=== PATIENT | male | born 1985 | race Caucasian/White ===

== ENCOUNTER 2022-01-09 09:01 | Outpatient (CLI) | payer OTHER, SELFPAY ==
--- NOTE | 2022-01-09 09:15 | CRLHL7_ITS ---
For Patients: As a result of the Century Cures Act, medical imaging exams and procedure reports are released immediately into your electronic medical record. You may view this report before your referring provider. If you have questions, please contact your health care provider. Indication: Left shoulder pain. Procedure : Informed consent was obtained. The site was marked. Time-out was performed. The skin of the left shoulder was cleansed with ChloraPrep. A sterile drape was placed. 8 cc of 1 percent lidocaine was administered for superficial anesthesia. Subsequently a 22 gauge spinal needle was introduced into the left shoulder joint under intermittent fluoroscopic guidance. Injection of 2 cc nonionic Omnipaque 240 contrast confirmed intra-articular location. Subsequently 11 cc of dilute gadolinium were injected. The needle was removed and hemostasis achieved with direct pressure. A dressing was placed. The patient tolerated the procedure well without immediate complication and was immediately sent to MRI for imaging. Total fluoroscopy time 35 seconds. Impression: Successful fluoroscopically guided left shoulder arthrogram for MRI. Dictated by Pipe Morales MD @ 01/09/2022 10:41:54 AM (Electronically Signed)
--- NOTE | 2022-01-09 10:15 | MR_ITS ---
[address] [address] Phone:?[phone] Fax:?[phone] Referring Physician Information: Alistair Bryant M.D. [address] [place] [address] Phone:?[phone] Fax:?[phone] Patient:Georgia Lizarraga D.O.B:?1985 Sex:?Male Phone:?[phone] [facility] MRN:?[id number] Exam Date:?01/09/2022 ? EXAM: MR ARTHROGRAM of the LEFT SHOULDER CLINICAL INFORMATION: Male, 36 years old, with left shoulder pain. INDICATION: Evaluate for labral tear. PRIOR SURGERY: None reported. PLAIN FILMS: None available. COMPARISONS: No prior MRIs available. TECHNICAL INFORMATION: Exam performed after the injection of gadolinium-based contrast into the glenohumeral joint of the left shoulder, reported separately. Using a 1.5T MR scanner and a localizing surface coil: coronal obliques: T1FS, PDFS sagittal obliques: PD, T1FS axials: PDFS, T1FS SEDATION: None CONTRAST: No intravenous contrast was administered. FINDINGS: Bones: Proximal humerus: No fracture or marrow edema/pathology. No humeral Hill-Sachs or reverse Hill-Sachs lesion/impaction or contusion. Glenoid: No fracture or marrow edema/pathology. No osseous Bankart lesion. Rotator cuff and muscles/tendons: Supraspinatus: No tendinopathy, tear or atrophy. Infraspinatus: No tendinopathy, tear or atrophy. Teres minor: No tendinopathy, tear or atrophy. Subscapularis: Mild tendinopathy of the superior distal subscapularis, without tendon tear or muscle atrophy. Deltoid: No strain or atrophy. Coracoacromial arch: Acromion morphology: The acromion has type II morphology. No discrete subacromial osseous spur or os acromiale. Acromiohumeral space: The acromiohumeral space is within normal limits. Coracohumeral space: The coracohumeral space is within normal limits. Acromioclavicular joint: Joint: Mild AC joint arthropathy, without significant inferior osteophytosis or evidence of supraspinatus impingement. Ligaments: Coracoclavicular ligaments are intact. Bursae: Subacromial-subdeltoid: No convincing subacromial bursal thickening/bursitis. Subcoracoid: No convincing subcoracoid bursal thickening/bursitis. Biceps tendon: The long head of the biceps tendon is present within the bicipital groove. Mild tendinopathy and fraying of the intra-articular biceps long head tendon, without split/tear. Glenohumeral joint: Contrast: Gadolinium-based contrast distends the glenohumeral joint, as expected, and fails to extend into the subacromial-subdeltoid bursa. Articular cartilage: Humeral head: No osteochondral abnormalities. Glenoid: No osteochondral abnormalities. Loose bodies: No discrete intra-articular body within the joint. Labrum:?Intrasubstance degeneration fraying/regular is present throughout the superior labrum, however and no contrast material visualized extending into the signal alteration seen on the PDFS sequences (coronal PDFS series 6 images 9- 15). There is poorly defined tearing of the anterior through inferior labrum over a length of 3.0 cm (coronal PDFS series 6 images 11-16 and axial T1FS series 3 images 16-19). No paralabral cyst. Inferior glenohumeral ligament/axillary pouch:?Intact. The axillary pouch is normal in thickness and signal. No evidence of adhesive capsulitis or capsular injury. IMPRESSION: 1. Poorly defined tearing of the anterior through inferior labrum over a length of 3.0 cm. Intrasubstance degeneration and fraying is present throughout the superior labrum, without additional labral tearing superiorly. 2. Mild subscapularis tendinopathy. No rotator cuff tendon tear. 3. Mild tendinopathy of the intra-articular biceps long head tendon, without split/tear. 4. Mild AC joint arthropathy. No subacromial-subdeltoid bursitis or narrowing of the glenohumeral space. 5. No full-thickness chondral defect or evidence of glenohumeral joint osteoarthritis. BC Electronically signed on 01/09/2022 3:09:00 PM by Michel Regan M.D.
== END 2022-01-09 09:02 | disposition home or self-care (01) ==
PROVIDERS: PCP Family Medicine; Visit Provider Orthopaedic Surgery
DX: M25.512 Pain in left shoulder (principal); S43.432A Superior glenoid labrum lesion of left shoulder, initial encounter; M75.52 Bursitis of left shoulder; M19.012 Primary osteoarthritis, left shoulder
CPT/HCPCS: 23350; 73222; 77002; A9575; Q9966

== ENCOUNTER 2022-11-19 21:12 | Emergency (ER) | payer OTHER, SELFPAY ==
[2022-11-19 21:16] VITALS: BP 155/101; PULSE 86; RESP 16; TEMP 36.2; O2SAT 96
--- NOTE | 2022-11-19 21:32 | CRLHL7_ITS ---
For Patients: As a result of the Century Cures Act, medical imaging exams and procedure reports are released immediately into your electronic medical record. You may view this report before your referring provider. If you have questions, please contact your health care provider. INDICATION: Sudden onset of testicular pain, left greater than right. One month status post vasectomy. COMPARISON: None available. FINDINGS: Ultrasound examination of the testes was performed with a high-resolution linear transducer. The testes are normal in appearance, with smooth margins and uniform internal echogenicity. There is normal and symmetric color and pulse doppler flow. The right testis measures 5.6 x 3.0 x 3.6 cm and the left measures 5.7 x 2.6 x 4.0. cm. The epididymal heads are normal in appearance. There are tiny bilateral hydroceles, nonspecific. No extratesticular masses are seen. IMPRESSION: Normal ultrasound examination of the testes with no sign of torsion. Tiny bilateral hydroceles, nonspecific. Dictated by Bipin Cunha MD @ 11/19/2022 10:58:58 PM (Electronically Signed)
[2022-11-19] MEDS: KETOROLAC 30 MG/ML inj IM (21:49)
--- NOTE | 2022-11-19 23:06 | CRLHL7_ITS ---
For Patients: As a result of the Century Cures Act, medical imaging exams and procedure reports are released immediately into your electronic medical record. You may view this report before your referring provider. If you have questions, please contact your health care provider. INDICATION: Left lower quadrant pain. COMPARISON: Ultrasound of the testes from today. TECHNIQUE: CT examination of the abdomen and pelvis was performed without contrast enhancement using 3 mm thick axial sections from the lung bases through the pubic symphysis. Oral contrast was not administered. Please note that all CT scans at this facility use dose modulation, iterative reconstruction, and/or weight-based dosing when appropriate to reduce radiation dose to as low as reasonably achievable. FINDINGS: In the abdomen, the unenhanced liver, spleen, pancreas, and adrenals are normal in appearance. A poorly seen low-density region in the cortex of the lower pole of the right kidney measuring 1.1 centimeters in diameter is probably a cortical cyst. The kidneys are otherwise normal in appearance. The gallbladder is normal in appearance. The abdominal aorta is normal in caliber with no sign of dilatation. There is no sign of retroperitoneal mass or adenopathy. The stomach, loops of small bowel, and colon in the abdomen are normal in appearance. In the pelvis, the appendix is normal in appearance with no sign of inflammatory process. The loops of small bowel, colon, and rectum in the pelvis are normal in appearance. The prostate is normal in appearance. The urinary bladder is normal in appearance. There is no sign of pelvic or inguinal mass or adenopathy. There is no sign of free air or free fluid in the abdomen or pelvis. The lung bases are clear. The osseous structures are normal in appearance for the patient`s age. IMPRESSION: Nothing seen to explain the patient`s left lower quadrant pain. No sign of diverticulosis or diverticulitis. No sign of left urinary system calculus or obstruction. CT of the abdomen shows a probable small cyst in the lower pole of the right kidney of no clinical concern. Normal CT of the pelvis without contrast. Please note that all CT scans at this facility use dose modulation, iterative reconstruction, and/or weight-based dosing when appropriate to reduce radiation dose to as low as reasonably achievable. Dictated by Bipin Cunha MD @ 11/19/2022 11:57:17 PM (Electronically Signed)
[2022-11-20 00:23] LABS: Appearance Urine Clear (Clear); Bilirubin Urine Negative (Negative); Blood Urine Negative (Negative); Color Urine Yellow (Yellow); Glucose Urine Negative (Negative); Ketones Urine Negative (Negative); Leukocyte Esterase Urine Negative (Negative); Nitrite Urine Negative (Negative); Protein Urine Negative (Negative); Specific Gravity Urine >= 1.030 (1.000-1.030); Urobilinogen Urine 0.2 (0.2-1.0)
--- NOTE | 2022-11-20 00:31 | ED.GENADULT ---
HPI - General Adult General Date Seen: 11/20/22 Chief complaint: Groin Pain Stated complaint: pain in lower right abdomen/groin Time Seen by Provider: 11/19/22 21:26 Source: patient Mode of arrival: ambulatory Limitations: no limitations History of Present Illness HPI narrative: Patient is a 37-year-old male who has been having some pain since yesterday, initially says it was kind of across the lower abdomen and left lower quadrant but today is more testicular. He had a vasectomy about a month ago which was uneventful. Had a little pain afterwards but that had gotten better. Has not had an appetite today, maybe some mild nausea. No vomiting or diarrhea, no black or bloody stools. He notes that it was difficult to urinate earlier but does not have dysuria or hematuria. No fevers or trauma. Related Data Home Medications Medication Instructions Recorded Confirmed cholecalciferol (vitamin D3) 25 25 mcg PO DAILY 12/17/21 01/21/22 mcg (1,000 unit) tablet dextroamphetamine-amphetamine ER 30 PO DAILY 12/17/21 01/21/22 30 mg 24hr capsule,extend release fluoxetine 40 mg capsule 40 mg PO DAILY 12/17/21 01/21/22 multivitamin with iron 1 tab PO QDAY 12/17/21 01/21/22 Allergies Allergy/AdvReac Type Severity Reaction Status Date / Time bupropion Allergy Unknown Suicide Verified 01/21/22 13:20 attempt venlafaxine Allergy Unknown Feel Verified 01/21/22 13:20 physically sick Review of Systems Status of ROS: Reports: 10 or more systems reviewed and unremarkable except as noted in History and below PFSH [facility] Social History Smoking Status: Never smoker Non-prescribed substance use: denies use Exam Narrative: Exam Narrative: Vital signs as noted above. In general, an alert, well-appearing patient. Head: Normocephalic, atraumatic. Eyes: Pupils are equal reactive. Extraocular movements are full. Conjunctivae are normal. ENT: Mucous membranes are moist. Throat is normal. Neck: Supple without lymphadenopathy. Heart: Regular rate and rhythm. No murmur or rub. Lungs: Clear bilaterally. No increased work of breathing, crackles or wheezes. Abdomen: Soft and nondistended. He has some mild suprapubic and left lower quadrant tenderness without rebound guarding or rigidity. : Scrotum is normal in appearance without significant erythema. Right testicle is nontender. On the left, he has some tenderness more over the spermatic cord, the testicle itself does not seem significantly tender. No significant edema. Extremities: Well perfused. No edema. No calf tenderness. Pulses intact. Neurologic: Patient is alert and oriented to person and place. Speech is fluent. Face is symmetric. Moves all extremities equally. Affect: Normal. Skin: Warm and dry. Well perfused. Const: Vital Signs, click to edit/add: Vital Signs - 24 hr 11/19/22 21:16 Temperature 97.2 F L Pulse Rate [Left P ulse Oximeter] 86 Respiratory Rate 16 Blood Pressure [Ri ght Upper Arm] 155/101 H Pulse Oximetry 96 Oxygen Delivery Me thod Room Air Documenting provider has reviewed patient's vital signs: yes Course Course Hospital Course: Initially, patient had an ultrasound read by Radiology as negative. He has good blood flow, no fluid collections or other abnormal findings. I had ordered a UA although this was not obtained until quite a ways into his ER course. He had some Toradol here. I elected to do a CT scan to look for another cause of pain that might radiate to the testicle such as a kidney stone or less likely diverticulitis, obstruction, or some other acute abdominal finding. CT is read by Radiology as negative. Etiology of his symptoms at this time is unclear. The urinalysis is unremarkable, 0-2 red cells and 0-2 white cells. For now, will cover for possible epididymitis, ibuprofen or Tylenol as needed for pain. Return for worsening, primary care follow-up if not improving over the next couple of days. Vital Signs Vital signs: Initial Vital Signs Temperature 97.2 F L 11/19/22 21:16 Temperature Source Temporal Artery Scan 11/19/22 21:16 Pulse Rate 86 11/19/22 21:16 Pulse Rhythm Regular 11/19/22 21:16 Respiratory Rate 16 11/19/22 21:16 Blood Pressure 155/101 H 11/19/22 21:16 Blood Pressure Mean 119 H 11/19/22 21:16 Blood Pressure Position Sitting 11/19/22 21:16 Pulse Oximetry 96 11/19/22 21:16 Oxygen Delivery Method Room Air 11/19/22 21:16 Vital Signs Temperature 97.2 F L 11/19/22 21:16 Pulse Rate 86 11/19/22 21:16 Respiratory Rate 16 11/19/22 21:16 Blood Pressure 155/101 H 11/19/22 21:16 Pulse Oximetry 96 11/19/22 21:16 Oxygen Delivery Method Room Air 11/19/22 21:16 Temperature 97.2 F L 11/19/22 21:16 Pulse Rate 86 11/19/22 21:16 Respiratory Rate 16 11/19/22 21:16 Blood Pressure 155/101 H 11/19/22 21:16 Pulse Oximetry 96 11/19/22 21:16 Oxygen Delivery Method Room Air 11/19/22 21:16 Discharge Plan Discharge Prescriptions: No Action dextroamphetamine-amphetamine 30 mg capsule,extended release 24hr 30 PO DAILY fluoxetine 40 mg capsule 40 mg PO DAILY cholecalciferol (vitamin D3) 25 mcg (1,000 unit) tablet 25 mcg PO DAILY multivitamin with iron Tablet 1 tab PO QDAY Follow Up/Referrals: Carmen Lopez DO [Primary Care Provider] -
[2022-11-20 00:32] LABS: Bacteria Urine Few; RBC Urine 0-2 (0-2); Squamous Epithelial Cell Urine Few (None-Few); WBC Urine 0-2 (0-5)
[2022-11-20 01:00] VITALS: BP 148/62; PULSE 70; RESP 16; O2SAT 96
== END 2022-11-20 01:02 | disposition home or self-care (01) ==
PROVIDERS: Emergency Provider Emergency Medicine; PCP Family Medicine
DX: R10.30 Lower abdominal pain, unspecified (principal)
CPT/HCPCS: 74176; 76870; 81001; 87086; 93976; 96372; 99284; J1885

== ENCOUNTER 2024-09-09 19:59 | Emergency (ER) | payer BC, SELFPAY ==
--- OUTSIDE RECORDS SUMMARY | 2024-09-09 20:04 | XMS_ITS | Continuity of Care Document ---
Author Organization [facility] Address [address] [place] [id number] Care Team Providers Care Replenishment Merchandising Associate Name Role Phone Joy Chappell Unavailable Unavailable Procedures Procedure Date Percutaneous Image guided destruction pr ocedures B Percutaneous Image guided destruction pr ocedures B Advance Directives Directive Yes / No Effective Date File Name No Information Encounters Encounter Description Practice Location Reason(s) For Visit Diagnoses Date Provider Providers Copied on Encounter [facility], [address] [place] [address], [id number], [facility] No Information 5 Misti Hamilton. [address] [place] [address], [place], [address], . tel:[phone] Referring Provider: Rima James, [address] [place] [address], [id number] . tel:[phone] [facility], [address] [place] [address], [id number], [facility] No Information 5 Moni Haile. [address] [place] [address], [id number] , . [phone] Referring Provider: Rima James, [address] [place] [address], [id number] . tel:[phone] Family History Family Member Type Diagnosis Age At Onset No Information Payers Payer name Insurance type Covered alliance party ID Brett simon(s) [facility] [id number] Social History Type Description Quantity Date Captured Comments Sex Male Smoking Status No Information Chief Complaint And Reason For Visit No Information Reason For Referral Reason For Referral No Information History Of Present Illness Encounter Date Complaint History Of Prese nt Illness No Information Functional Status Date Functional Assessmen t No Information Instructions Date Instruction Additional Infor mation No Information Assessments Type Assessment Date No Information Patient Care Teams Name Effective Dates (start - stop) Status Members No Information
--- OUTSIDE RECORDS SUMMARY | 2024-09-09 20:04 | XMS_ITS | Clinical Summary ---
Author Organization [facility] Address [address] [place] [id number] Care Team Providers Care Washcoat Wiper Name Role Phone Carmen Lopez DO Primary Care Provider MoratayaElzbieta snow SCREEN ROLLER Unavailable Allergies Active Allergy Reactions Criticality Noted Date Comments Bupropion *Unknown 01/21/2022 Venlafaxine Other - Describe In Comment Field 05/07/2017 Feel physically sick Bupropion Hcl Other - Describe In Comment Field 05/16/2017 suicide attempt Medications medication order composerIndicatio ns:Seasonal affective disorder SAD light, 10.000 lux over 30 minutes daily 1 unit 0 5 Active cholecalciferol (Vitamin D-3) 2,000 unit capsule Take 1 Capsule (2,000 units) by mouth once daily. 0 1 Active CPAPIndications:O SA (obstructive sleep apnea) replacement CPAP machine for home use at pressure: 10-15 cmw , Heated humidifier x 1 q 5 yr, Humidifier chamber x 1 q 6 mo, Full face mask x1 q 3mos, with cushion x 1 q mo, Heated tubing x 1 q 3 mo, Headgear x 1 q 6 mo, Filters: Disposable x 2 q mo non-disposable filters x1 q 6mo, Length of Need: 99 months, Frequency of use: Daily 1 Each 11 2 Active cyclobenzaprine (FLEXERIL) 5 mg tablet take 1-2 tablets by mouth every 8 hours as needed for pain/muscle spasms. Start with 1 tablet at bedtime.* 3 Active triamcinolone, 55 mcg each actuation, nasal (NASACORT AQ) 55 mcg nasal sprayIndications: Chronic sinusitis, unspecified location SPRAY twice INTO BOTH NOSTRILS ONCE a day. 16.9 mL 4 Active tadalafiL (CIALIS) 5 mg tabletIndications :Erectile dysfunction, unspecified erectile dysfunction type Take 1 Tablet (5 mg) by mouth once daily. 30 Tablet 2 5 Active dextroamphetamine -amphetamine (ADDERALL XR) 30 mg Extended-Release capsuleIndication s:ADHD, predominantly inattentive type TAKE ONE CAPSULE BY MOUTH ONE TIME DAILY 30 Capsule 5 Active dextroamphetamine -amphetamine (ADDERALL XR) 10 mg Extended-Release capsuleIndication s:ADHD, predominantly inattentive type TAKE ONE CAPSULE BY MOUTH ONE TIME DAILY 30 Capsule 5 Active dextroamphetamine -amphetamine (Adderall XR) 10 mg Extended-Release capsuleIndication s:ADHD, predominantly inattentive type Take 1 Capsule (10 mg) by mouth once daily. 30 Capsule 5 Active dextroamphetamine -amphetamine (ADDERALL XR) 30 mg Extended-Release capsuleIndication s:ADHD, predominantly inattentive type Take 1 Capsule (30 mg) by mouth once daily. 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 [address] [place] [phone] Elzbieta Morataya, SCREEN ROLLER Refill Request (Fluoxetine) 07/21/[address] [facility] [address] [place] [phone] Elzbieta Morataya, SCREEN ROLLER Refill Request (Dextroamphetamine-am phetamine, Dextroamphetamine-amp hetamine) 07/21/[address] [facility] [address] [place] [phone] Elzbieta Morataya, SCREEN ROLLER Refill Request (Tadalafil) 06/29/2024 3:45 PM FOOD SANITARIAN Telemedicine [facility] [address] [place] [phone] Elzbieta Morataya, SCREEN ROLLER Medication Management; Telehealth ([place]) 06/29/2024 Travel from Last 3 Months Immunizations Immunization Administration Dates Next Due AMB Influenza, IIV4 PF (=>6 mos Flulaval,Fluzone Fluarix)(Flu Clinic Only) 03/05/2019 COVID-19 vaccine (CipherMax 30mcg/0.3mL) PF, MDV 04/09/2021,07/18/2020,06/27/2020 Influenza Virus, Unspecified 02/24/2014, 07/29/2013,04/09/2012,2006 Influenza, IIV4 04/09/2021, 0,03/26/2017,2015,05/23/2015 Influenza, IIV4 (=>6mos) MDV 04/19/2018 Td, Preservative Free (age > = 7 Years) 06/09/2006 Tdap 11/09/2012,01/27/2012,08/01/2011 Family History Medical History Relation Name Comments Heart Disease Father Psychiatric illness Father depressi on Stroke Father Cancer Maternal Grandfather leukemi a Diabetes Mother Psychiatric illness Mother depressi on Cancer Paternal Grandfather Blood d isease? Other Paternal Grandmother alzheim ers Psychiatric illness Sister 1 depressi on/anxiety Relation Name Status Comments Father Alive Maternal Grandfather Mother Alive Paternal Grandfather Paternal Grandmother Sister 1 Alive Sister 2 Alive Social History Tobacco Use Types Packs/Day Years Used Date Smoking Tobacco: Former Passive Smoke Exposure: Never Smokeless Tobacco: Former Tobacco Cessation:Counseling Given: Yes Alcohol Use Standard Drinks/Week Comments Not Currently 0 (1 standard drink = 0.6 oz pur e alcohol) 1-2 beers per month PHQ-2 Answer Date Recorded PHQ-2 TOTAL SCORE 1 06/29/2024 Social Connections Answer Date Recorded Do you often feel lonely or isolated from those around you? 0 05/21/2024 Financial Resource Strain Answer Date R ecorded Difficulty of Paying Living Expenses 3 05/21/2024 Difficulty of Paying Living Expenses Not on file 05/21/2024 Food Insecurity Answer Date Recorded Do you worry your food will run out before you are able to buy more? 1 05/21/2024 Transportation Needs Answer Date Record ed Does lack of transportation keep you from medica l appointments? 1 05/21/2024 Does lack of transportation keep you from work, meetings or getting things that you need? 1 05/21/2024 Housing Stability Answer Date Recorded What is your housing situation today? 1 05/21/2024 Utilities Answer Date Recorded Do you have trouble paying f or utilities (for example, heat, electricity, water, phone)? 1 05/21/2024 Sex and Gender Information Value Date Recorded Sex Assigned at Male 07/09/2020 5:29 PM FOOD SANITARIAN Legal Sex Male 7:28 AM FOOD SANITARIAN Gender Identity Male 07/09/2020 5:29 PM FOOD SANITARIAN Sexual Orientation Straight 07/09/2020 5: 29 PM FOOD SANITARIAN Obstetrics History Last Filed Vital Signs Vital Sign Reading Time Taken Comments Blood Pressure 131/87 05/21/2024 8:00 AM FOOD SANITARIAN Pulse 79 05/21/2024 8:00 AM FOOD SANITARIAN Temperature 36.7 C (98.1 F) 08/26/2022 11:40 AM CDT Respiratory Rate 16 07/10/2020 4:17 PM FOOD SANITARIAN Oxygen Saturation 96% 05/21/2024 8:00 AM FOOD SANITARIAN Inhaled Oxygen Concentration - - Weight 112.5 kg (248 lb) 05/21/2024 8:00 AM FOOD SANITARIAN Height 173.4 cm (5' 8.27) 09/05/2022 2:41 PM CD T Body Mass Index 37.41 09/05/2022 2:41 PM CDT Plan of Treatment Upcoming Encounters Date Type Department Care Team (Nila st Contact Info) Description 09/28/2024 3:45 PM CDT Telemedicine [facility] [address] [place] [phone] MoratayaElzbieta snow, SCREEN ROLLER [address] [place] [address] Health Maintenance Due Date Last Done Comments Tetanus booster 11/09/2022 11/09/2012, 01/08, 08/01/2011, Additional history exists BMI (ht and wt on same day) for age 18+ 09/06/2023 09/05/2022, 11/12/2021, 10/10/2021, Additional history exists COVID-19 vaccine series ( season) 2024 04/09/2021, 07/18/2020, 06/27/2020 Influenza Vaccine (Season Ended) 2025 04/09/2021, 03/03/2020, 03/05/2019, Additional history exists Depression screening for age 12+ 06/29/2025 06/29/2024, 04/13/2024, 11/28/2023, Additional history exists Lipids for age 35-44 09/06/2027 09/05/2022, 04/09/2021, 03/06/2016 Tdap Completed 11/09/2012, 01/08, 08/01/2011 HIV for age 15-65 Completed 09/05/2022 Hepatitis C screening for age 18-79 Completed 09/05/2022 Pneumococcal series for age 6-49 Aged Out No longer eligible based on patient's age to complete this topic Procedures Procedure Name Priority Date/Time Associated Diagnosis Comments LC HIV-1/O/2, 4TH GENERATION Routine 09/05/2022 3:18 PM CDT Screening for HIV (human immunodeficiency virus) LC HCV ANTIBODY RFX TO QUANT PCR Routine 09/05/2022 3:18 PM CDT Need for hepatitis C screening test LC LIPID PANEL AND CHOL/HDL RATIO Routine 09/05/2022 3:18 PM CDT Screening cholesterol level from Last 3 Months or Most Recently Relevant to Health Maintenance Results * (ABNORMAL) LC LIPID PANEL AND CHOL/HDL RATIO (09/05/2022 3:18 PM CDT) [facility] Cholesterol, Total 224(H) 100 - 199 mg/dL 09/08/2022 12:06 PM CDT [facility] ([facility]) Triglycerides 262(H) 0 - 149 mg/dL 09/08/2022 12:06 PM CDT [facility] ([facility]) HDL Cholesterol 38(L) >39 mg/dL 12:06 PM CDT [facility] ([facility]) VLDL Cholesterol Jose Martin 47(H) 5 - 40 mg/dL 09/08/2022 12:06 PM CDT [facility] ([facility]) LDL Chol Calc (NIH) 139(H) 0 - 99 mg/dL 09/08/2022 12:06 PM CDT [facility] ([facility]) T. Chol/HDL Ratio 5.9(H) 0.0 - 5.0 ratio 09/08/2022 12:06 PM CDT [facility] ([facility]) Comment: T. Chol/HDL Ratio Men Women 1/2 Avg.Risk 3.4 3.3 Avg.Risk 5.0 4.4 2X Avg.Risk 9.6 7.1 3X Avg.Risk 23.4 11.0 Blood BLOOD SPECIMEN / Unknown Venipuncture / Unknown 09/05/2022 3:18 PM CDT 09/05/2022 3:22 PM CDT [facility] ([facility]) - 09/08/2022 12:06 PM CDT Performed at: [address] [place] [id number] Leather Toggler: Ayush Bolaños MD, Phone: [phone] us Adei Garretqra DO SEND OUTS Final Result Performing Organization Address [facility] Co de Phone Number [facility] ([facility]) [address] [place] [address], [place] * LC HCV ANTIBODY RFX TO QUANT PCR (09/05/2022 3:18 PM CDT) [facility] HCV Ab Non Reactive Non Reactive 09/08/2022 11:[address] [facility] ([facility]) Blood BLOOD SPECIMEN / Unknown Venipuncture / Unknown 09/05/2022 3:18 PM CDT 09/05/2022 3:22 PM CDT [facility] ([facility]) - 09/08/2022 11:08 AM CDT Performed at: [address] [place] [id number] Leather Toggler: Ayush Bolaños MD, Phone: [phone] us Dianelys Garretsol DO LABORATORY Final Result Performing Organization Address [facility] Co de Phone Number [facility] ([facility]) [address] [place] [address], [place] * LC HIV-1/O/2, 4TH GENERATION (09/05/2022 3:18 PM CDT) [facility] HIV Scr 4th Gen Non Reactive Non Reactive 09/10/2022 12:[address] [facility] ([facility]) Comment: HIV Negative HIV-1/HIV-2 antibodies and HIV-1 p24 antigen were NOT detected. There is no laboratory evidence of HIV infection. Blood BLOOD SPECIMEN / Unknown Venipuncture / Unknown 09/05/2022 3:18 PM CDT 09/05/2022 3:22 PM CDT [facility] ([facility]) - 09/10/2022 12:06 AM CDT Performed at: [facility] [address] [place], [place] [id number] Leather Toggler: Ayush Bolaños MD, Phone: [phone] us Dianelys Desir DO LABORATORY Final Result [facility] ([facility]) [facility] [place] [address], [place] from Last 3 Months or Most Recently Relevant to Health Maintenance [place] [address] [place] [address] [facility] Advance Directives * Full Code (Latest Code Status on File) Date Activated Date Inactivated Comments 07/26/2010 12:32 PM 07/26/2010 7:14 PM Care Teams Washcoat Wiper Relationship Specialty Start Date End Date Carmen Lopez [place] [address] PCP - General Family Practice 01/17/15 Elzbieta Morataya, SAMANTA [address] [place] [address] Psychiatry Clinical Nurse Specialist 04/25/21
--- OUTSIDE RECORDS SUMMARY | 2024-09-09 20:04 | XMS_ITS | Continuity of Care Document ---
Author Organization [facility] Address [address] [facility] [place] [address] Phone Care Team Providers Care Door Framer Name Role Phone Will Bill HUTCHINS Unavailable Unavailabl e Allergies, Adverse Reactions, Alerts Substance Reaction Status Criticality venlafaxine Active No Information bupropion Active No Information Medications Medication Instructions Dosage Effective Dates (start - stop) Status Comments naproxen 500 mg tablet take 1 tablet by oral route 2 times every day with food 500 MG - Active fluoxetine 20 mg tablet take 1 tablet by oral route every day in the morning 20 MG - Active Adderall 30 mg tablet take 1 tablet by oral route every day before breakfast 30 MG - Active Adderall 10 mg tablet take 1 tablet by oral route every day before breakfast 10 MG - Active IBUPROFEN (unknown strength) take 1 tablet by oral route every 6 hours as needed with food Not Available - Active Procedures Procedure Date No Charge For Visit Per Prov PT EVAL MOD COMPLEX 30 MIN [employer] OFFICE/OUTPATIENT VISIT, EST Prolong off/op e/m ea 15 min [employer] [employer] RF Cerv/Thor First Level RF Cerv/thoracic 2nd Level [employer] [employer] OFFICE/OUTPATIENT VISIT, EST [employer] [employer] RF Cerv/Thor First Level RF Cerv/thoracic 2nd Level [employer] [employer] OFFICE/OUTPATIENT VISIT, EST [employer] SCS Lead Pull Satellite OFFICE/OUTPATIENT VISIT, EST [employer] [employer] IMPLANT NEUROELECTRODES Ultrasound Guidance IMPLANT NEUROELECTRODES ANALYZE NEUROSTIM, COMPLEX [employer] OFFICE/OUTPATIENT VISIT, EST [employer] N BLOCK, STELLATE GANGLION Right Side Ma [employer] N BLOCK, STELLATE GANGLION Right Side Fe N BLOCK, STELLATE GANGLION Right Side Fe [employer] OFFICE/OUTPATIENT VISIT, NEW [employer] Advance Directives Directive Yes / No Effective Date File Name No Information Encounters Encounter Description Practice Location Reason(s) For Visit Diagnoses Date Provider Providers Copied on Encounter [facility], [address] [place] [address], [id number] , [place] tel:[phone] [facility] [place] No Information Chetan Khan. [address] [place] [address], [id number], [place]. tel:[phone] [facility], [address] [place] [address], [id number] , [place] tel:[phone] Telehealth ADHDMajor depressive disorder, recurrent, in partial remission 5 Frida Chery. [address] [place], [place], [id number], [place]. tel:[phone] [facility], [address] [place] [address], [id number] , [place] tel:[phone] [facility] Lauren cervicalgia (chief complaint) Other spondylosis with radiculopathy, cervical regionOther spondylosis, cervical regionCausalgi a of left upper limbCausalgia of right upper limb Aug- 5 Kraig Block. [address] [place], [place], [id number], [place]. tel:[phone] Referring Provider: [facility] [address], [place], [address]. tel:[phone] OFFICE/OUTPA TIENT VISIT, [facility], [address] [place] [address], [id number] , [place] tel:[phone] [facility] Neck Pain (chief complaint) Causalgia of right upper limbChronic pain syndromeCausal mary of left upper limbOther muscle spasmOther spondylosis with radiculopathy, cervical region 5 Say Cabrerae. [address], [place], [id number], [place]. tel:[phone] Referring Provider: [facility] [address], [place], [address]. tel:[phone] [facility], [address] [place] [address], [id number] , [place] tel:[phone] [facility] Other spondylosis, cervical region 5 Jacob Abarca. [address] [place] [address], [id number], [place]. tel:[phone] Referring Provider: [facility] [address], [place], [address]. tel:[phone] OFFICE/OUTPA TIENT VISIT, [facility], [address] [place] [address], [id number] , [place] tel:[phone] [facility] Neck Pain (chief complaint) Causalgia of right upper limbChronic pain syndromeCausal mary of left upper limbOther spondylosis, cervical region 5 Say Amanda. [address] [facility] [address], [address], [place], [place], [id number], [place]. tel:[phone] Referring Provider: [facility] [address], [place], [address]. tel:[phone] [facility], [address] [place] [address], [id number] , [place] tel:[phone] [facility] Other spondylosis, cervical region 5 Jacob Abarca. [address] [place] [address], [id number], [place]. [phone] Referring Provider: [facility] [address], [place], [address]. [phone] [facility], [address] [place] [address], [id number] , [place] tel:[phone] [facility] Other spondylosis, cervical region 4 Nyongesa Julieta. [address] [facility] [address] [facility] [address], [place], [id number], [place]. [phone] Referring Provider: Bill Clayton, [address] [place] [address], [id number]. [phone] OFFICE/OUTPA TIENT VISIT, [facility], [address] [place] [address], [id number] , [place] tel:[phone] [facility] Neck Pain (chief complaint) Causalgia of right upper limbChronic pain syndromeCausal mary of left upper limbOther spondylosis, cervical region 4 Nyongesa Julieta. [address] [facility] [address], [place], [id number], [place]. tel:[phone] Referring Provider: [facility] [address], [place], [address]. [phone] [facility], [address] [place] [address], [id number] , [place] [phone] [facility] Causalgia of right upper limb Gavin-0 4 Venus Guerrero. [place], [address] [facility], [place], [address], [place]. tel:[phone] Referring Provider: [facility] [address], [place], [address]. tel:[phone] OFFICE/OUTPA TIENT VISIT, EST [facility], [address] [place] [address], [id number] , [place] tel:[phone] [facility] Neck Pain (chief complaint) Causalgia of right upper limbChronic pain syndromeRadicu lopathy, cervical regionCausalgi a of left upper limb May-0 3- 4 Say Amanda. [address] [facility] [address], [place], [place], [id number], [place]. tel:[phone] Referring Provider: [facility] [address], [place], [address]. tel:[phone] [facility], [address] [place] [address], [id number] , [place] [phone] [facility] Causalgia of right upper limb Apr-0 - 4 Chetan Khan. [address] [place] [address], [id number], [place]. tel:[phone] Referring Provider: [facility] [address], [place], [address]. tel:[phone] OFFICE/OUTPA TIENT VISIT, [facility], [address] [place] [address], [id number] , [place] tel: [phone] [facility] Neck Pain (chief complaint) Causalgia of right upper limbChronic pain syndromeRadicu lopathy, cervical region Aug-1 4 Say Patel. [address] [facility] [address], [address], [place], [place], [id number], [place]. tel:[phone] Referring Provider: [facility] [address], [place], [address]. tel:[phone] [facility], [address] [place] [address], [id number] , [place] [phone] [facility] Causalgia of right upper limb Mar-0 7- 4 Jacob Abarca. [address] [place] [address], [id number], [place]. tel:[phone] Referring Provider: [facility] [address] [facility] [address], [place], [address]. tel:[phone] [facility], [address] [place] [address], [id number] , [place] [phone] [facility] Causalgia of right upper limb 4 Jacob Abarca. [address] [place] [address], [id number], [place]. tel:[phone] Referring Provider: [facility] [facility] [facility] [address], [place], [address]. tel:[phone] [facility], [address] [place] [address], [id number] , [place] [phone] [facility] Causalgia of right upper limb 4 Jacob Abarca. [address] [place] [address], [id number], [place]. tel:[phone] Referring Provider: [facility] [facility] [address], [place], [address]. tel:[phone] OFFICE/OUTPA TIENT VISIT, [facility], [address] [place] [address], [id number] , [place] [phone] [facility] Neck Pain (chief complaint) Chronic pain syndromeCausal mary of right upper limbRadiculopa thy, cervical region 4 Say Patel. [address], [place], [place], [id number], [place]. tel:[phone] Referring Provider: [facility] [address], [place], [address]. tel:[phone] Family History Family Member Type Diagnosis Age At Onset No Information Payers Payer name Insurance type Covered libertarian ID Authoriza tion(s) [facility] [id number] Social History Type Description Quantity Date Captured Comments Sex Male Smoking Status No Information Chief Complaint And Reason For Visit No Information Reason For Referral Reason For Referral No Information Plan Of Treatment Date Type Action Status Goal Review Allergy List. Due on due Goal Hepatitis C screening. Due o n due Goal Lipid panel. Due on due Goal Weight. Due on d ue Goal Unhealthy drug use screening . Due on due Goal Tobacco Use. Due on due Goal Medication Reconciliation. D ue on due Goal PHQ-9. Due on du e Goal Update Social History. Due o n due Goal Height. Due on d ue Goal Tobacco Use. Due on due Goal Height. Due on d ue Goal Weight. Due on d ue Goal Lipid panel. Due on due Goal PHQ-9. Due on du e Goal Update Social History. Due o n due Goal Hepatitis C screening. Due o n due Goal Medication Reconciliation. D ue on due Goal Review Allergy List. Due on due Goal Unhealthy drug use screening . Due on due Goal Unhealthy drug use screening . Due on due Goal Hepatitis C screening. Due o n due Goal Lipid panel. Due on due Goal Review Allergy List. Due on due Goal Medication Reconciliation. D ue on due Goal Tobacco Use. Due on due Goal Weight. Due on d ue Goal Update Social History. Due o n due Goal PHQ-9. Due on du e Goal Height. Due on d ue Goal Medication Reconciliation. D ue on due Goal Hepatitis C screening. Due o n due Goal Review Allergy List. Due on due Goal Tobacco Use. Due on due Goal Update Social History. Due o n due Goal PHQ-9. Due on du e Goal Height. Due on d ue Goal Weight. Due on d ue Goal Lipid panel. Due on due Goal Unhealthy drug use screening . Due on due Goal Unhealthy drug use screening . Due on due Goal Hepatitis C screening. Due o n due Goal Update Social History. Due o n due Goal Height. Due on d ue Goal Medication Reconciliation. D ue on due Goal PHQ-9. Due on du e Goal Weight. Due on d ue Goal Review Allergy List. Due on due Goal Tobacco Use. Due on due Goal Medication Reconciliation. D ue on due Goal Weight. Due on d ue Goal Unhealthy drug use screening . Due on due Goal Height. Due on d ue Goal PHQ-9. Due on du e Goal Update Social History. Due o n due Goal Hepatitis C screening. Due o n due Goal Tobacco Use. Due on due Goal Review Allergy List. Due on due Goal Lifestyle education regardin g diet completed Goal PHQ-9. Due on du e Goal Unhealthy drug use screening . Due on due Goal Weight. Due on d ue Goal Update Social History. Due o n due Goal Hepatitis C screening. Due o n due Goal Height. Due on d ue Goal Medication Reconciliation. D ue on due Goal Tobacco Use. Due on due Goal Review Allergy List. Due on due Goal Weight. Due on d ue Goal Tobacco Use. Due on due Goal Update Social History. Due o n due Goal Medication Reconciliation. D ue on due Goal Height. Due on d ue Goal Hepatitis C screening. Due o n due Goal Review Allergy List. Due on due Goal Unhealthy drug use screening . Due on due Goal PHQ-9. Due on du e Goal PHQ-9. Due on du e Goal Height. Due on d ue Goal Review Allergy List. Due on due Goal Hepatitis C screening. Due o n due Goal Medication Reconciliation. D ue on due Goal Unhealthy drug use screening . Due on due Goal Tobacco Use. Due on 024 due Goal Weight. Due on d ue Goal Update Social History. Due o n due Goal Review Allergy List. Due on due Goal Height. Due on d ue Goal Tobacco Use. Due on 024 due Goal Weight. Due on d ue Goal Update Social History. Due o n due Goal Unhealthy drug use screening . Due on due Goal Medication Reconciliation. D ue on due Goal PHQ-9. Due on du e Goal Hepatitis C screening. Due o n due Goal Hepatitis C screening. Due o n due Goal PHQ-9. Due on du e Goal Update Social History. Due o n due Goal Review Allergy List. Due on due Goal Unhealthy drug use screening . Due on due Goal Tobacco Use. Due on 024 due Goal Medication Reconciliation. D ue on due Goal Height. Due on d ue Goal Weight. Due on d ue Goal Lifestyle education david garay diet completed Appointment Kvng [place] BOOKED History Of Present Illness Encounter Date Complaint History Of Prese nt Illness cervicalgia Patient is a 39 year old male presenting with complaints of chronic neck pain that has been on going since a fall in 2011. 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 He ended up hitting his head on a concrete wall at the end of a fall. For the first few years, he was managing well and experienced relief with RF procedures. He had a period of time that he was pain free, but his pain has since returned. He is not experiencing the same level of relief with procedures. He notes most pain localized to his neck and mid back. He does experience periods of radicular numbness and tingling into his arms and hands. Consistent headaches, but these have improved with medication. Patient notes no associated weakness. His symptoms are increased with sustained positioning and holding his head up. Symptoms are somewhat relieved with supporting his head and ice. He has not been able to return to work. He has tried multiple different interventions, including physical therapy but has not experienced relief. He notes that his current level of discomfort limits everything he is able to do each day and is currently limiting his overall quality of life. He would like to decrease his overall discomfort to allow him to perform his daily, functional activities with less limitation and an improved quality of life. Neck Pain Duration: chroni c. The status of the symptoms are fluctuating. The client describes the pain as Aching, Burning and Sharp. Aggravating factors include reaching. Relieving factors include ice and rest. Comments: Leta nichols is a 39 y/o male who presents for follow up and pain management in the setting of chronic headaches, neck/upper back pain with radiation into the shoulders, and CRPS of the BUE. He is s/p right C5-C7 RFA on 06/10/24 without benefit. He is s/p left C5-C7 RFA on 06/25/24 and has had slight benefit, although continues to have pain including neck pain and headaches. Slight improvement to his headaches since last visit. Finds the need to have neck/head support after minimal activity. Has deep pain to his lower neck/upper trapezius area and surface-level pain to his lateral neck. Describes that his BL hands feel cold and are numb. Has not returned to work since 05/18/24. Of note, patient's is present via phone during today's visit. No other concerns today. Neck Pain The severity of the problem is moderate. Duration: chronic. The problem has worsened. Location of pain is bilateral posterior neck and bilateral upper back. The client describes the pain as Aching, Burning, Sharp and Tingling. Aggravating factors include standing and raising arms. Relieving factors include ice and rest. Comments: Leta nichols is a 38 y/o male who presents for follow up and pain management in the setting of chronic headaches, neck/upper back pain with radiation into the shoulders and CRPS of the BUE. S/p Right C5-C6,C6-C7 facet joints (C5, C6 and C7 facet nerves) RFA 06/10/24. Still feeling post-op pain at this time. Will have left side completed 06/25/24. Has not returned to work since 05/18/24. Has had constant neck, migraine, and headache pain along with not being able to sit without any head support. Requests completion of disability paperwork.No other concerns today. Neck Pain Duration: chroni c. Aggravating factors include reaching overhead and social activities. Additional information:. Rates neck pain as 6/10, trapezius pain as 6/10, and upper back pain as 5/10. Comments: This i s my first evaluation of the patient whose care was routinely managed by my colleague, Cesar Donovan PA-C. Previous clinic notes and imaging were reviewed.Kvng is a 38 y/o male who presents for follow up and pain management in the setting of chronic headaches, neck/upper back pain with radiation into the shoulders and CRPS of the BUE. Was last seen on 11/12/23. Pain has been worse this month.Endorses tension headaches every other day, occurring about 3-4x/week. He states he doesn't experience any nausea or vomiting during the episodes but does note his jaw tends to tense up.Ongoing neck pain (R>L) has been the most bothersome. Recalls having received RFAs through [facility] previously with the most recent one completed in 2022. Notes the R side provided 10% relief (previous RFA was >60% relief) and L side provided 80-90% relief for over 6 months. Reports the benefit wanes with each repeat. Would like to repeat the RFA through [facility]. No other concerns today. Comments: Leta nichols is a 38 y/o male here for follow up for neck pain (R>L). Pain started in 2011 after falling down cement stairs and hitting his head. Neck pain radiates down both sides and into his shoulders and upper back. Reports burning at his upper back (R>L). Pain has improved since last visit and PNS placement.He is s/p R shoulder PNS trial on 09/10/23 with >50% relief. Reports very limited R shoulder pain, but has now been noticing increased L shoulder pain. Would like to pursue the L shoulder PNS trial as he prefers to not trial L stellate ganglion blocks. Over the last couple of days, he has noticed two discolored parallel lines at his upper right arm, several inches below the PNS site. Denies any fevers, swelling, redness, tenderness, or warmth at the site.The patient is currently managed on adderall, duloxetine 60mg, cyclobenzaprine 5mg, and ibuprofen. Denies SE. No other concerns today. Neck Pain Duration: chroni c. The problem has improved. The frequency of pain is constant. Pertinent negatives include bladder incontinence. Neck Pain Duration: chroni c. The problem has not changed. The frequency of pain is constant. The client describes the pain as Aching, Burning, Sharp and tension. Aggravating factors include bending, lifting, lying down, prolonged sitting and housework. Relieving factors include ice. Pertinent negatives include bladder incontinence. Comments: Leta nichols is a 38 y/o male here for initial WC follow up for neck pain (R>L). Pain started in 2011 after falling down cement stairs and hitting his head. Neck pain radiates down both sides and into his shoulders and upper back. Reports burning at his upper back (R>L). Denies any changes to his pain since ALEJANDRO.He is s/p right stellate ganglion blocks on 07/10/23, 07/30/23, and 08/14/23. Found about 2 days of 85% relief from the first and second injections, but did not have any relief from the third injection. Reports different responses to each injection.Has had several BL cervical RFAs which were very helpful previously, but has noticed waning relief. Last completed 05/13/23. Reports an ongoing skin sensitivity after an RFA in 2020.The patient is currently managed on adderall, duloxetine 60mg, cyclobenzaprine 5mg, and ibuprofen. Denies SE. No other concerns today. Neck Pain Duration: chroni c. The client describes the pain as Aching, Burning and Sharp. Aggravating factors include lifting, lying down, standing, twisting, sitting, changing positions and housework. Relieving factors include ice and massage. Pertinent negatives include bladder incontinence. Comments: This i s my first evaluation of the patient. Outside records from [facility] are available for review.Kvng is a 38 y/o male here for initial consult for neck pain (R>L), referred by Dr. Eladio Valera through [facility]. Pain started in 2011 after falling down cement stairs and hitting his head. He describes pain as constant aching, sharp, and burning and rates the pain severity 7/10.States neck pain radiates down both sides and into his shoulders and upper back. Reports burning at his upper back (R>L). Unsure if pain is muscular in nature or not. Does not have pain, numbness, or tingling in his BL hands. Secondary BL shoulder pain (L>R).He has tried TPIs, ESIs, Botox, PT (last done fall 2022), acupuncture, primary care pediatrician, massage, and L shoulder injection, without lasting relief. Has had several BL cervical RFAs which were very helpful previously, but has noticed waning relief. Last completed 05/13/23.He had been following with [facility] and was referred to [facility] for a possible interscalene block. Does not have tenderness, pain, or limited ROM upon physical exam. Last cervical MRI in 2022.He has previously tried gabapentin, tizanidine, methocarbamol, metaxalone, naproxen, prednisone, and oxycodone. Muscle relaxers typically cause drowsiness. The patient is currently managed on adderall 30mg AM, adderall 10mg PM, duloxetine 60mg, cyclobenzaprine 5mg, and ibuprofen.Kvng is interested in all treatment options through [facility]. No other concerns today.Treatments Tried: Bilateral cervical RFAs- Previously helpful, several in the past, last one not helpful-done May 13Flexeril- not helpfulTizanidine- not helpful, sedationGabapentin- not helpfulIbuprofen- helpfulCymbalta- not helpfulShoulder joint injection- possibly done for the left shoulderNaproxenRobaxin- not helpful, sedationTPI- Not helpfulCervical LYNNE- not helpfulPT- last done fallAcupuncture- not helpfulBotox injections- not helpfulChiropractic- not helpfulMassage- not helpful Functional Status Date Functional Assessmen t No Information Instructions Date Instruction Additional Infor mation Lifestyle education regarding di et Related to Body mass index [BMI] 37.0-37.9, adult Lifestyle education regarding di et Related to Body mass index [BMI] 37.0-37.9, adult Assessments Type Assessment Date No Information Patient Care Teams Name Effective Dates (start - stop) Status Members No Information
--- OUTSIDE RECORDS SUMMARY | 2024-09-09 20:04 | XMS_ITS | Continuity of Care Document ---
Author Organization Howie [facility] Address [address] [place] [address] Phone Care Team Providers Care Cupola Operator Name Role Phone RN, RN Unavailable Unavailable Allergies, Adverse Reactions, Alerts Substance Reaction Status Criticality No Known Drug Allergies Active No I nformation Medications Medication Instructions Dosage Effective Dates (start - stop) Status Comments Prozac 20 mg capsule take 3 capsule (60m g) by oral route every day - Active Procedures Procedure Date RF Cervical/Thoracic Single Level RF Cervical/Thoracic Single Level RF Cervical/Thoracic Addt'l Level RF Cervical/Thoracic Addt'l Level RF Cervical/Thoracic Single Level RF Cervical/Thoracic Addt'l Level RF Cervical/Thoracic Single Level RF Cervical/Thoracic Addt'l Level RF Cervical/Thoracic Single Level RF Cervical/Thoracic Addt'l Level Mod cs by same phys, 5 yrs + IV Cons Sed each addl 15M RF Cervical/Thoracic Single Level RF Cervical/Thoracic Addt'l Level RF Cervical/Thoracic Single Level RF Cervical/Thoracic Addt'l Level Mod cs by same phys, 5 yrs + Inj Anes Facet Jt; Cerv/thor-3rd Level N Inj Anes Facet Jt; Cerv/thor-2nd Level N Inj Anes Facet Jt; Cerv/thor-1st Level N Inj Anes Facet Jt; Cerv/thor-1st Level N Inj Anes Facet Jt; Cerv/thor-2nd Level N Inj Anes Facet Jt; Cerv/thor-3rd Level N Inj Anes Facet Jt; Cerv/thor-1st Level N Inj Anes Facet Jt; Cerv/thor-2nd Level N Inj Anes Facet Jt; Cerv/thor-3rd Level N Inj Anes Facet Jt; Cerv/thor-1st Level O Inj Anes Facet Jt; Cerv/thor-2nd Level O Inj Anes Facet Jt; Cerv/thor-1st Level O Inj Anes Facet Jt; Cerv/thor-2nd Level O Inj Anes Facet Jt; Cerv/thor-1st Level O Inj Anes Facet Jt; Cerv/thor-2nd Level O Advance Directives Directive Yes / No Effective Date File Name No Information Encounters Encounter Description Practice Location Reason(s) For Visit Diagnoses Date Provider Providers Copied on Encounter Howie, [facility], [address], [place], [place], [address], [place] tel:[phone] [facility] No Information 6 RN RN. [address], [address], [place], [place], [address], [place]. tel:[phone] [facility], [address], [place], [address], [place] tel:[phone] [facility] [place] Other spondylosis with radiculopathy, cervicothoracic regionOther spondylosis with radiculopathy, cervical region 5 Jose C Amezcua. [address], [address], [place], [place], [address], [place]. tel:[phone] Referring Provider: Seven Woodall, [address], [place], [address] . tel:[phone] [facility], [address], [place], [place], [address], [place] tel:[phone] [facility] [place] No Information 5 Jose C Amezcua. [address], [place], [place], [address], [place]. tel:[phone] [facility], [address], [place], [address], [place] tel:[phone] [facility] [place] No Information 0 4 Jose C Amezcua. [address], [address], [place], [place], [address], [place]. tel:[phone] Referring Provider: Seven Woodall, [address], [place], [address] . tel:[phone] Howie, [facility], [address], [place], [place], [address], [place] tel:[phone] [facility] [place] No Information 0 4 Jose C Amezcua. [address], [address], [place], [place], [address], [place]. tel:[phone] [facility], [address], [place], [address], [place] tel:[phone] [facility] [place] No Information 4 Jose C Amezcua. [address], [address], [place], [place], [address], [place]. tel:[phone] Referring Provider: Seven Woodall, [address], [place], [address] . tel:[phone] [facility], [address], [place], [place], [address], [place] tel:[phone] [facility] [place] No Information 4 Jose C Seven. [address], [address], [place], [place], [address], [place]. tel:[phone] [facility], [address], [place], [address], [place] tel:[phone] [facility] [place] No Information 4 Jose C Amezcua. [address], [address], [place], [place], [address], [place]. tel:[phone] Referring Provider: Seven Woodall, [address], [place], [address] . tel:[phone] [facility], [address], [place], [place], [address], [place] tel:[phone] [facility] [place] No Information 4 Jose C Seven. [address], [place], [place], [address], [place]. tel:[phone] [facility], [address], [place], [address], [place] tel:[phone] [facility] [place] No Information 4 Jose C Amezcua. [address], [address], [place], [place], [address], [place]. tel:[phone] Referring Provider: Seven Woodall, [address], [place], [address] . tel:[phone] [facility], [address], [place], [place], [address], [place] tel:[phone] [facility] [place] No Information 4 Jose C Amezcua. [address], [place], [place], [address], [place]. tel:[phone] Family History Family Member Type Diagnosis Age At Onset N/A Problem (finding) No Significant Family H istory Payers Payer name Insurance type Covered alliance party ID Brett simon(s) W/C [facility] [id number] Social History Type Description Quantity Date Captured [...]
--- OUTSIDE RECORDS SUMMARY | 2024-09-09 20:05 | XMS_ITS | Clinical Summary ---
Author Organization [facility] Address [address] [place] [address] Care Team Providers Care Special Class Welder Name Role Phone Carmen Lopez MD Primary Care Provider [phone] Allergies Active Allergy Reactions Criticality Noted Date Comments Bupropion Other (See Comments) 04/12/2021 Suicide attempt Venlafaxine Other (See Comments) 04/12/2021 [place] physically sick Medications amphetamine-dex troamphetamine (ADDERALL XR) 30 MG 24 hr capsule Take 30 mg by mouth daily In AM Active amphetamine-dex troamphetamine (ADDERALL) 15 MG tablet Take 15 mg by mouth daily Active Vitamin D, Cholecalciferol , 25 MCG (1000 UT) CAPS Take 2,000 Units by mouth daily Active triamcinolone (NASACORT ALLERGY 24HR) 55 MCG/ACT nasal aerosol [place] 2 sprays into both nostrils daily Active multivitamin w/minerals (MULTI-VITAMIN) tablet Take 1 tablet by mouth daily Active psyllium (METAMUCIL) 28.3 % packet Take 1 packet by mouth daily Active FLUoxetine (PROZAC) 40 MG capsule TAKE ONE CAPSULE BY MOUTH EVERY DAY IN THE MORNING. 05/31/2021 Active Family History Medical History Relation Comments Hypertension Father Diabetes Mother Relation Status Comments Father Mother Social History Tobacco Use Types Packs/Day Years Used Date Smoking Tobacco: Never Smokeless Tobacco: Never Alcohol Use Standard Drinks/Week Comments Yes 0 (1 standard drink = 0.6 oz pur e alcohol) Very socially Adolescent Education Answer Date Record ed Getting School Help Needed Not on file 03/25 Sex and Gender Information Value Date Recorded Sex Assigned at Not on file Legal Sex Male 4:50 AM LAW FIRM RECEPTIONIST Gender Identity Not on file Sexual Orientation Not on file Last Filed Vital Signs Vital Sign Reading Time Taken Comments Blood Pressure 128/87 06/04/2021 11:00 AM LAW FIRM RECEPTIONIST Pulse 66 06/04/2021 11:02 AM LAW FIRM RECEPTIONIST Temperature 36.2 C (97.2 F) 06/04/2021 9:45 AM LAW FIRM RECEPTIONIST Respiratory Rate 9 06/04/2021 11:03 AM LAW FIRM RECEPTIONIST Oxygen Saturation 95% 06/04/2021 11:03 AM LAW FIRM RECEPTIONIST Inhaled Oxygen Concentration - - Weight 104.3 kg (230 lb) 06/04/2021 9:57 AM LAW FIRM RECEPTIONIST Height 175.3 cm (5' 9) 06/04/2021 9:57 AM LAW FIRM RECEPTIONIST Body Mass Index 33.97 06/04/2021 9:57 AM LAW FIRM RECEPTIONIST Plan of Treatment Not on file Insurance MEDICA CHOICE Care Teams Special Class Welder Relationship Specialty Start Date End Date Carmen Lopez MD [address] [address] PCP - General Family Medicine 05/11/21
[2024-09-09 20:14] VITALS: BP 155/97; PULSE 93; RESP 16; TEMP 37.2; O2SAT 95; BMI 38.3
--- NOTE | 2024-09-09 20:20 | CRLHL7_ITS ---
For Patients: As a result of the Century Cures Act, medical imaging exams and procedure reports are released immediately into your electronic medical record. You may view this report before your referring provider. If you have questions, please contact your health care provider. INDICATION: Perirectal abscess, query fistula. TECHNIQUE: CT pelvis with 128 cc of Isovue 370 IV contrast. COMPARISON: None. FINDINGS: There is a 2.4 x 1.1 x 1.8 cm left medial gluteal cleft perirectal rim enhancing fluid collection, compatible with an abscess, without definite fistulization to the anus. Very mild surrounding inflammatory changes. No free fluid within the pelvis. No rectal wall thickening. Normal appendix. Vasectomy clips. The osseous structures are unremarkable for age. IMPRESSION: 2.4 x 1.1 x 1.8 cm left medial gluteal cleft perirectal abscess without definite fistulization to the anus. Please note that all CT scans at this facility use dose modulation, iterative reconstruction, and/or weight-based dosing when appropriate to reduce radiation dose to as low as reasonably achievable. Dictated by Dash Aragon MD @ 09/09/2024 9:11:39 PM (Electronically Signed)
--- NOTE | 2024-09-09 20:22 | ED_ITS ---
HPI - General Adult General Time Seen by Provider: 20:22 Date Seen: 09/09/24 Chief complaint: Unspecified Complaint, Adult Stated complaint: pain and mass near rectum Time Seen by Provider: 09/09/24 20:14 Source: patient Mode of arrival: ambulatory Limitations: no limitations History of Present Illness HPI narrative: Kvng is a 39-year-old male presents emergency department via private car with self with a rectal mass. Patient states that he has had perirectal abscess in the past, he says it has been a long time, both occurence was when he was on prednisone. Patient noticed symptoms over the last week, aggressively got more painful over the last few days, denies any drainage to the area. Patient does have a history of hemorrhoids, did have some bright red blood when wiping this afternoon. Denies any black tarry stools or bloody stools. Patient was feeling warm today but denies any fevers or chills. Denies any abdominal pain, no history of any ulcerative colitis or Crohn's disease, no family history. Patient feels that the mass is deeper than previous since they seemed more superificial. Related Data Home Medications ?Medication ?Instructions ?Recorded ?Confirmed cholecalciferol (vitamin D3) 25 25 mcg PO DAILY 12/17/21 03/06/23 mcg (1,000 unit) tablet dextroamphetamine-amphetamine ER 30 PO DAILY 12/17/21 03/06/23 30 mg 24hr capsule,extend release multivitamin with iron 1 tab PO QDAY 12/17/21 03/06/23 cyclobenzaprine 5 mg tablet mg PO 03/06/23 03/06/23 dextroamphetamine-amphetamine ER 1 cap PO QAM 03/06/23 03/06/23 10 mg 24hr capsule,extend release fluoxetine 20 mg capsule 20 mg PO DAILY 03/06/23 03/06/23 imipramine HCl 10 mg tablet mg PO 03/06/23 03/06/23 triamcinolone acetonide 55 mcg intranasal DAILY 03/06/23 03/06/23 nasal spray aerosol Allergies Allergy/AdvReac Type Severity Reaction Status Date / Time bupropion Allergy Unknown Suicide Verified 09/09/24 20:44 attempt venlafaxine Allergy Unknown Feel Verified 09/09/24 20:44 physically sick Review of Systems Status of ROS: Reports: 10 or more systems reviewed and unremarkable except as noted in History and below [facility] Social History Smoking Status: Never smoker Non-prescribed substance use: denies use Exam Narrative: Exam Narrative: General: NAD laying comfortably. HEENT: PERRL, EOMI Heart: NSR, S1S2 Lungs: clear Abdomen: soft, non tender Genitalia: large non thrombosed external hemorroids present. non tender. 1 cm from the anal sphincter, at the 7'o clock position, there is an area of induration but no fluctuance, no surrounding erythema. previous scar present. tender to palpation. Const: Vital Signs, click to edit/add: Vital Signs - 24 hr 09/09/24 20:14 Temperature 99.0 F Pulse Rate [Pulse Oximeter] 93 Respiratory Rate 16 Blood Pressure [Ri ght Upper Arm] 155/97 H Pulse Oximetry 95 Oxygen Delivery Me thod Room Air Course Course ED Course: 8:15 PM: aidet performed. vitals are normal. based on history and physical exam, will place IV peripheral, CT pelvis with IV contrast to see extent of the abscess, CBC and BMP. differential includes, external hemorrhoids, colitis, perirectal abscess, fistula, Crohn's disease, ulcerative colitis, dermatitis as well as all etiologies. Reevaluation(s) Time of Reevaluation #1: 21:25 Reevaluation #1: IMPRESSION: 2.4 x 1.1 x 1.8 cm left medial gluteal cleft perirectal abscess without definite fistulization to the anus. Time of Reevaluation #2: 22:10 Reevaluation #2: Perirectal abscess drained, please see procedure note, was able to reach a with General surgery Dr. Scott, she reviewed imaging, plan would be to place on Augmentin 875-125 mg twice daily over the next 5 days, she would see the patient tomorrow morning at 9:45 a.m. in clinic, keep patient NPO after midnight, reasons return were given. Vital Signs Vital signs: Initial Vital Signs Temperature 99.0 F 09/09/24 20:14 Temperature Source Temporal Artery Scan 09/09/24 20:14 Pulse Rate 93 09/09/24 20:14 Respiratory Rate 16 09/09/24 20:14 Blood Pressure 155/97 H 09/09/24 20:14 Blood Pressure Mean 116 H 09/09/24 20:14 Blood Pressure Position High-Fowlers 09/09/24 20:14 Pulse Oximetry 95 09/09/24 20:14 Oxygen Delivery Method Room Air 09/09/24 20:14 Vital Signs Temperature 99.0 F 09/09/24 20:14 Pulse Rate 93 09/09/24 20:14 Respiratory Rate 16 09/09/24 20:14 Blood Pressure 155/97 H 09/09/24 20:14 Pulse Oximetry 95 09/09/24 20:14 Oxygen Delivery Method Room Air 09/09/24 20:14 Temperature 99.0 F 09/09/24 20:14 Pulse Rate 93 09/09/24 20:14 Respiratory Rate 16 09/09/24 20:14 Blood Pressure 155/97 H 09/09/24 20:14 Pulse Oximetry 95 09/09/24 20:14 Oxygen Delivery Method Room Air 09/09/24 20:14 Medical Decision Making Lab Data Labs: Lab Results 09/09/24 09/09/24 Range/Units 20:21 20:30 WBC 5.94 (4.50-11.00) K/uL RBC 5.13 (4.30-5.90) m/uL Hgb 15.1 (13.5-17.5) gm/dL Hct 43.8 (37.0-53.0) % MCV 85 (80-100) fL MCH 29 (26-34) pg MCHC 35 (32-36) gm/dL RDW Coeff of Felix 12.9 (11.5-15.5) % Plt Count 172 (140-440) K/uL Neut % (Auto) 75.8 H (42.0-72.0) % Lymph % (Auto) 14.5 L (20-44) % Jenkins % (Auto) 7.9 (0.0-11.0) % Eos % (Auto) 1.5 (0.0-7.0) % Baso % (Auto) 0.3 (0.0-3.0) % Neut # (Auto) 4.50 (1.7-7.0) K/uL Lymph # (Auto) 0.90 (0.90-2.90) K/uL Jenkins # (Auto) 0.50 (0.00-0.90) K/UL Eos # (Auto) 0.09 (0.00-0.50) K/uL Baso # (Auto) 0.02 (0.00-0.30) K/uL Abs Immat Gran (auto) 0.00 (0.00-0.30) K/uL Imm/Tot Granulo (auto) 0.0 % Sodium 135 (135-149) mmol/L Potassium 3.4 L (3.6-5.1) mmol/L Chloride 100 (96-114) mmol/L Carbon Dioxide 25 (20-32) mmol/L Anion Gap 10 (7-15) mEq/L BUN 25 H (5-24) mg/dL Creatinine 0.8 (0.5-1.5) mg/dL Estimated Creat Clear 122.74 Estimated GFR 115 ml/min Glucose 150 H (60-115) mg/dL Calcium 9.5 (8.4-10.6) mg/dL Discharge Plan Discharge Clinical Impression: Perirectal abscess Patient Disposition: Home, Self-Care Instructions: Rectal Abscess (ED) Additional Instructions: Sitz baths 3 times daily, to take the Augmentin 875-125 mg twice daily for 7 days, Percocet 5-325 mg, to tablet every 6 hours for breakthrough pain. To follow up with Dr. Scott General Surgery tomorrow in clinic at 9:45 as scheduled. Return if worsening symptoms. Activity Level: No Restrictions Prescriptions: No Action dextroamphetamine-amphetamine 30 mg capsule,extended release 24hr 30 PO DAILY cholecalciferol (vitamin D3) 25 mcg (1,000 unit) tablet 25 mcg PO DAILY multivitamin with iron Tablet 1 tab PO QDAY imipramine HCl 10 mg tablet PO dextroamphetamine-amphetamine 10 mg capsule,extended release 24hr 1 cap PO QAM fluoxetine 20 mg capsule 20 mg PO DAILY cyclobenzaprine 5 mg tablet PO triamcinolone acetonide 55 mcg aerosol,spray intranasal DAILY Follow Up/Referrals: Carmen Lopez DO [Primary Care Provider] - Stand Alone Forms: MyHealth Info Instructions Procedures I/D Type: abscess Site: bob-rectal Pre procedure diagnosis: perirectal abscess Post procedure diagnosis: perirectal abscess Site marking: site marked Verification/time out: correct patient Name of person performing procedure: Alejandro Delong Chapter Relations Administrator 1, if any: adenike Anesthesia I&D: lidocaine 1% (epinephrine) Amount of anesthesia used (mls): 2 Technique: incised with #11 blade Amount of fluid expressed (mL): 5 Irrigation: No Packing used?: none Estimated blood loss (if any): less than 5mls Specimens removed (if any): No Complications: pain and bleeding Conclusion: patient tolerated procedure
[2024-09-09 20:39] LABS: Basophils Absolute Auto 0.02 K/uL (0.00-0.30); Basophils Percent Auto 0.3 % (0.0-3.0); Eosinophils Absolute Auto 0.09 K/uL (0.00-0.50); Eosinophils Percent Auto 1.5 % (0.0-7.0); Hematocrit* 43.8 % (37.0-53.0); Hemoglobin* 15.1 gm/dL (13.5-17.5); Lymphocytes Percent Auto 14.5 % (20-44); Mean Corpuscular HGB Conc 35 gm/dL (32-36); Mean Corpuscular Hemoglobin 29 pg (26-34); Mean Corpuscular Volume 85 fL (80-100); Monocytes Percent Auto 7.9 % (0.0-11.0); Neutrophils Percent Auto 75.8 % (42.0-72.0); Platelet Count* 172 K/uL (140-440); RDW Coefficient of Variation % 12.9 % (11.5-15.5); Red Blood Count* 5.13 m/uL (4.30-5.90); White Blood Count* 5.94 K/uL (4.50-11.00)
--- OUTSIDE RECORDS SUMMARY | 2024-09-09 20:44 | XMS_ITS | Clinical Summary ---
Author Organization [facility] Address [address] [place] [address] Care Team Providers Care Windows Systems Engineer Name Role Phone Carmen Lopez MD Primary Care Provider [phone] Allergies Active Allergy Reactions Criticality Noted Date Comments Bupropion Other (See Comments) 04/12/2021 Suicide attempt Venlafaxine Other (See Comments) 04/12/2021 [place] physically sick Medications amphetamine-dex troamphetamine (ADDERALL XR) 30 MG 24 hr capsule Take 30 mg by mouth daily In AM Active amphetamine-dex troamphetamine (ADDERALL) 15 MG tablet Take 15 mg by mouth daily Active Vitamin D, Cholecalciferol , 25 MCG (1000 UT) CAPS Take 2,000 Units by mouth daily Active triamcinolone (NASACORT ALLERGY 24HR) 55 MCG/ACT nasal aerosol [place] 2 sprays into both nostrils daily Active [...] on file Legal Sex Male 4:50 AM LANDSCAPE ARCHITECTURE PROFESSOR Gender Identity Not on file Sexual Orientation Not on file Last Filed Vital Signs Vital Sign Reading Time Taken Comments Blood Pressure 128/87 06/04/2021 11:00 AM LANDSCAPE ARCHITECTURE PROFESSOR Pulse 66 06/04/2021 11:02 AM LANDSCAPE ARCHITECTURE PROFESSOR Temperature 36.2 C (97.2 F) 06/04/2021 9:45 AM LANDSCAPE ARCHITECTURE PROFESSOR Respiratory Rate 9 06/04/2021 11:03 AM LANDSCAPE ARCHITECTURE PROFESSOR Oxygen Saturation 95% 06/04/2021 11:03 AM LANDSCAPE ARCHITECTURE PROFESSOR Inhaled Oxygen Concentration - - Weight 104.3 kg (230 lb) 06/04/2021 9:57 AM LANDSCAPE ARCHITECTURE PROFESSOR Height 175.3 cm (5' 9) 06/04/2021 9:57 AM LANDSCAPE ARCHITECTURE PROFESSOR Body Mass Index 33.97 06/04/2021 9:57 AM LANDSCAPE ARCHITECTURE PROFESSOR Plan of Treatment Not on file Insurance MEDICA CHOICE Care Teams Windows Systems Engineer Relationship Specialty Start Date End Date Carmen Lopez MD [place] [address] PCP - General Family Medicine 05/11/21
--- OUTSIDE RECORDS SUMMARY | 2024-09-09 20:44 | XMS_ITS | Continuity of Care Document ---
Author Organization [facility] Address [address] [place] [address] Phone Care Team Providers Care Oracle Wms Consultant Name Role Phone RN, RN Unavailable Unavailable [...] Date Provider Providers Copied on Encounter Howie, [facility], [address], [place], [place], [address], [place] tel:[phone] [facility] No Information 6 RN RN. [address], [place], [place], [address], [place]. tel:[phone] [facility], [address], [place], [address], [place] tel:[phone] [facility] [place] Other spondylosis with radiculopathy, cervical regionOther spondylosis with radiculopathy, cervicothoracic region 5 Jose C Amezcua. [address], [place], [place], [address], [place]. tel:[phone] Referring Provider: Seven Woodall, [address], [place], [address] . tel:[phone] [facility], [address], [place], [place], [address], [place] tel:[phone] [facility] [place] No Information 5 Jose C Amezcua. [address], [place], [place], [address], [place]. tel:[phone] [facility], [address], [place], [address], [place] tel:[phone] [facility] [place] No Information 0 4 Jose C Amezcua. [address], [place], [place], [address], [place]. tel:[phone] Referring Provider: Seven Woodall, [address], [place], [address] . tel:[phone] [facility], [facility], [address], [place], [place], [address], [place] tel:[phone] [facility] [place] No Information 0 4 Jose C Amezcua. [address], [place], [place], [address], [place]. tel:[phone] [facility], [address], [place], [address], [place] tel:[phone] [facility] [place] No Information 4 Jose C Amezcua. [address], [address], [place], [place], [address], [place]. tel:[phone] Referring Provider: Seven Woodall, [address], [place], [address] . tel:[phone] [facility], [address], [place], [place], [address], [place] tel:[phone] [facility] [place] No Information 4 Jose C Seven. [address], [address], [place], [place], [address], [place]. tel:[phone] [facility], [address], [place], [address], [place] tel:[phone] [facility] [place] No Information 4 Jose C Amezcua. [address], [place], [place], [address], [place]. tel:[phone] Referring Provider: Seven Woodall, [address], [place], [address] . tel:[phone] [facility], [address], [place], [place], [address], [place] tel:[phone] [facility] [place] No Information 4 Jose C Seven. [address], [address], [place], [place], [address], [place]. tel:[phone] [facility], [address], [place], [address], [place] tel:[phone] [facility] [place] No Information 4 Jose C Amezcua. [address], [address], [place], [place], [address], [place]. tel:[phone] Referring Provider: Seven Woodall, [address], [place], [address] . tel:[phone] [facility], [address], [place], [place], [address], [place] tel:[phone] [facility] [place] No Information 4 Jose C Amezcua. [address], [place], [place], [address], [place]. tel:[phone] Family History Family Member Type Diagnosis Age At Onset N/A Problem (finding) No Significant Family H istory Payers Payer name Insurance type Covered democrat ID Brett simon(s) W/C [facility] [id number] Social History Type Description Quantity Date Captured [...]
--- OUTSIDE RECORDS SUMMARY | 2024-09-09 20:44 | XMS_ITS | Clinical Summary ---
Author Organization [employer] [facility] Address [address] [place] [address] Care Team Providers Care Outboard Motor Mechanic Name Role Phone Carmen Lopez DO Primary Care Provider MoratayaElzbieta snow LOCATION MANAGER Unavailable [phone] Allergies Active Allergy Reactions Criticality Noted Date [...] Department Care Team Description 08/09/2024 Refill [facility] [address] [place] [phone] Elzbieta Morataya, LOCATION MANAGER Refill Request (Fluoxetine) 07/21/2024 Refill [facility] [address] [place] [phone] Elzbieta Morataya, LOCATION MANAGER Refill Request (Dextroamphetamine-am phetamine, Dextroamphetamine-amp hetamine) 07/21/2024 Refill [facility] [address] [place] [phone] Elzbieta Morataya, LOCATION MANAGER Refill Request (Tadalafil) 06/29/2024 3:45 PM JEWELRY MECHANIC Telemedicine [facility] [address] [place] [phone] Elzbieta Morataya, LOCATION MANAGER Medication Management; Telehealth ([place]) 06/29/2024 Travel from Last 3 Months Immunizations Immunization Administration Dates Next Due AMB Influenza, IIV4 PF (=>6 mos Flulaval,Fluzone Fluarix)(Flu Clinic Only) 03/05/2019 COVID-19 vaccine (Dianxin 30mcg/0.3mL) PF, MDV 04/09/2021,07/18/2020,06/27/2020 Influenza Virus, Unspecified [...] Sex Assigned at Male 07/09/2020 5:29 PM JEWELRY MECHANIC Legal Sex Male 7:28 AM JEWELRY MECHANIC Gender Identity Male 07/09/2020 5:29 PM JEWELRY MECHANIC Sexual Orientation Straight 07/09/2020 5: 29 PM JEWELRY MECHANIC Obstetrics History Last Filed Vital Signs Vital Sign Reading Time Taken Comments Blood Pressure 131/87 05/21/2024 8:00 AM JEWELRY MECHANIC Pulse 79 05/21/2024 8:00 AM JEWELRY MECHANIC Temperature 36.7 C (98.1 F) 08/26/2022 11:40 AM CDT Respiratory Rate 16 07/10/2020 4:17 PM JEWELRY MECHANIC Oxygen Saturation 96% 05/21/2024 8:00 AM JEWELRY MECHANIC Inhaled Oxygen Concentration - - Weight 112.5 kg (248 lb) 05/21/2024 8:00 AM JEWELRY MECHANIC Height 173.4 cm (5' 8.27) 09/05/2022 2:41 PM CD T Body Mass Index 37.41 09/05/2022 2:41 PM CDT Plan of Treatment Upcoming Encounters Date Type Department Care Team (Nila st Contact Info) Description 09/28/2024 3:45 PM CDT Telemedicine [facility] [address] [place] [phone] MoratayaElzbieta snow, LOCATION MANAGER [address] [place] [address] Health Maintenance Due Date Last Done Comments [...] AND CHOL/HDL RATIO (09/05/2022 3:18 PM CDT) [facility] Cholesterol, Total 224(H) 100 - 199 mg/dL 09/08/2022 12:06 PM CDT [facility] ([facility]) Triglycerides 262(H) 0 - 149 mg/dL 09/08/2022 12:06 PM CDT [facility] ([facility] HDL Cholesterol 38(L) >39 mg/dL 12:06 PM CDT [facility] ([facility]) VLDL Cholesterol Jose Martin 47(H) 5 - 40 mg/dL 09/08/2022 12:06 PM CDT [facility] ([facility]) LDL Chol Calc (NIH) 139(H) 0 - 99 mg/dL 09/08/2022 12:06 PM CDT [facility] ([facility]) T. Chol/HDL Ratio 5.9(H) 0.0 - 5.0 ratio 09/08/2022 12:06 PM CDT [facility] ([facility]) Comment: T. Chol/HDL Ratio Men Women 1/2 Avg.Risk 3.4 3.3 Avg.Risk 5.0 4.4 2X Avg.Risk 9.6 7.1 3X Avg.Risk 23.4 11.0 Blood BLOOD SPECIMEN / Unknown Venipuncture / Unknown 09/05/2022 3:18 PM CDT 09/05/2022 3:22 PM CDT [facility] ([facility]) - 09/08/2022 12:06 PM CDT Performed at: [address] [place] [id number] Bartender: Ayush Bolaños MD, Phone: [phone] us Adei Garretqra DO SEND OUTS Final Result Performing Organization Address [facility] Co de Phone Number [facility] ([facility]) [address] [place] [address], [place] * LC HCV ANTIBODY RFX TO QUANT PCR (09/05/2022 3:18 PM CDT) [facility] HCV Ab Non Reactive Non Reactive 09/08/2022 11:08 AM CDT [facility] ([facility]) Blood BLOOD SPECIMEN / Unknown Venipuncture / Unknown 09/05/2022 3:18 PM CDT 09/05/2022 3:22 PM CDT [facility] ([facility]) - 09/08/2022 11:08 AM CDT Performed at: [address] [place] [id number] Bartender: Ayush Bolaños MD, Phone: [phone] us Dianelys Garretsol DO LABORATORY Final Result Performing Organization Address [facility] Co de Phone Number [facility] ([facility]) [address] [place] [address], [place] * LC HIV-1/O/2, 4TH GENERATION (09/05/2022 3:18 PM CDT) [facility] HIV Scr 4th Gen Non Reactive Non Reactive 09/10/2022 12:06 AM CDT [facility] ([facility]) Comment: HIV Negative HIV-1/HIV-2 antibodies and HIV-1 p24 antigen were NOT detected. There is no laboratory evidence of HIV infection. Blood BLOOD SPECIMEN / Unknown Venipuncture / Unknown 09/05/2022 3:18 PM CDT 09/05/2022 3:22 PM CDT [facility] ([facility]) - 09/10/2022 12:06 AM CDT Performed at: [facility] [address] [place], [place] [id number] Bartender: Ayush Bolaños MD, Phone: [phone] us Dianelys Desir DO LABORATORY Final Result [facility] ([facility]) [facility] [place] [address], [place] from Last 3 Months or Most Recently Relevant to Health Maintenance [place] [address] [place] [address] [facility] Advance Directives * Full Code (Latest Code Status on File) Date Activated Date Inactivated Comments 07/26/2010 12:32 PM 07/26/2010 7:14 PM Care Teams Outboard Motor Mechanic Relationship Specialty Start Date End Date Carmen Lopez DO [address] [address] PCP - General Family Practice 01/17/15 Elzbieta Morataya, SAMANTA [address] [place] [address] Psychiatry Clinical Nurse Specialist 04/25/21
--- OUTSIDE RECORDS SUMMARY | 2024-09-09 20:44 | XMS_ITS | Continuity of Care Document ---
Author Organization [facility] Address [address] [place] [id number] Care Team Providers Care Local Bulk Driver Name Role Phone Joy Chappell Unavailable Unavailable Procedures Procedure Date Percutaneous Image guided destruction pr ocedures B Percutaneous Image guided destruction pr ocedures B Advance Directives Directive Yes / No Effective Date File Name No Information Encounters Encounter Description Practice Location Reason(s) For Visit Diagnoses Date Provider Providers Copied on Encounter [facility], [address] [place] [address], [id number], [facility] No Information 5 Misti Hamilton. [address] [place] [address], [place], [address], . tel:[phone] Referring Provider: Rima James, [address] [place] [address], [id number] . tel:[phone] [facility], [address] [place] [address], [id number], [facility] No Information 5 Moni Haile. [address] [place] [address], [id number] , . [phone] Referring Provider: Rima James, [address] [place] [address], [id number] . tel:[phone] Family History Family Member Type Diagnosis Age At Onset No Information Payers Payer name Insurance type Covered libertarian ID Brett simon(s) [facility] [id number] Social History Type Description Quantity Date Captured [...]
--- OUTSIDE RECORDS SUMMARY | 2024-09-09 20:44 | XMS_ITS | Continuity of Care Document ---
Author Organization [facility] Address [address] [place] [phone] Phone Care Team Providers Care Care Transition Coordinator Name Role Phone [facility] Unavailable Unava ilable Procedures Procedure Date RF Cerv/Thor First Level RF Cerv/thoracic 2nd Level Sales tax RF Cerv/Thor First Level RF Cerv/thoracic 2nd Level Sales tax N BLOCK, STELLATE GANGLION Sales tax N BLOCK, STELLATE GANGLION Sales tax Advance Directives Directive Yes / No Effective Date File Name No Information Encounters Encounter Description Practice Location Reason(s) For Visit Diagnoses Date Provider Providers Copied on Encounter [facility], [address] [place] [address], [id number], tel:[phone] [place] [address] No Information 5 [facility]. [address] [place] [address], [id number], [place]. tel:[phone] Referring Provider: Rima James, [address] [place], [address] . tel:[phone] [facility], [address] [place] [address], [id number], tel:[phone] [place] [address] No Information 5 [facility]. [address] [place] [address], [id number], . tel:[phone] Referring Provider: Rima James, [address] [facility] [place], [address] . tel:[phone] [facility], [address] [place] [address], [id number], tel:[phone] [place] [address] No Information 4 [facility]. [address] [place] [address], [id number], [place]. tel:[phone] Referring Provider: Rima James, [address] [facility] [place], [address] . tel:[phone] [facility], [address] [place] [address], [id number], tel:[phone] [place] [address] No Information 4 [facility]. [address] [place] [address], [id number], [place]. tel:[phone] Referring Provider: Rima James, [address] [facility] [place], [address] . tel:[phone] Family History Family Member Type Diagnosis Age At Onset No Information Payers Payer name Insurance type Covered alliance party ID Brett simon(s) [facility] [id number] Social History Type Description Quantity Date Captured [...]
--- OUTSIDE RECORDS SUMMARY | 2024-09-09 20:44 | XMS_ITS | Continuity of Care Document ---
Author Organization [facility] Address [address] [place] [address] [place] [address] Care Team Providers Care Turkey Boner Name Role Phone [facility] Unavailable Unav ailable Procedures Procedure Date IMPLANT NEUROELECTRODES Ultrasound Guidance IMPLANT NEUROELECTRODES Implt neurostim elctr each Sales tax Advance Directives Directive Yes / No Effective Date File Name No Information Encounters Encounter Description Practice Location Reason(s) For Visit Diagnoses Date Provider Providers Copied on Encounter [facility], [address] [facility] [place], [id number], [place] [facility] No Information [facility]. [address] [facility] [place], [id number], [place]. tel:[phone] Referring Provider: ROBIN Mendo[facility] [address] [address], [place], [address]. tel:[phone] Family History Family Member Type Diagnosis Age At Onset No Information Payers Payer name Insurance type Covered alliance party ID Authoriza tion(s) [facility] [id number] Social History Type Description Quantity Date Captured [...]
--- OUTSIDE RECORDS SUMMARY | 2024-09-09 20:44 | XMS_ITS | Continuity of Care Document ---
Author Organization [facility] Address [address] [facility] [facility] [place] [address] Phone Care Team Providers Care Box Sealing Machine Catcher Name Role Phone Will Bill HUTCHINS Unavailable [...] Diagnoses Date Provider Providers Copied on Encounter [facility], [address] [place] [address], [id number] , [place] tel:[phone] [facility] [place] No Information Chetan Khan. [address] [place] [address], [id number], [place]. tel:[phone] [facility], [address] [place] [address], [id number] , [place] tel:[phone] Telehealth ADHDMajor depressive disorder, recurrent, in partial remission 5 Frida Chery. [address] [place], [id number], [place]. tel:[phone] [facility], [address] [place] [address], [id number] , [place] tel:[phone] [facility] Lauren cervicalgia (chief complaint) Other spondylosis with radiculopathy, cervical regionOther spondylosis, cervical regionCausalgi a of left upper limbCausalgia of right upper limb Aug- 5 Kraig Block. [address] [place], [place], [id number], [place]. tel:[phone] Referring Provider: [facility] [address], [place], [address]. tel:[phone] OFFICE/OUTPA TIENT VISIT, [facility], [address] [place] [address], [id number] , [place] tel:[phone] [facility] Neck Pain (chief complaint) Causalgia of right upper limbChronic pain syndromeCausal mary of left upper limbOther muscle spasmOther spondylosis with radiculopathy, cervical region 5 Say Cabrerae. [address], [place], [id number], [place]. tel:[phone] Referring Provider: [facility] [address], [place], [address]. tel:[phone] [facility], [address] [place] [address], [id number] , [place] tel:[phone] [facility] Other spondylosis, cervical region 5 Jacob Abarca. [address] [place] [address], [id number], [place]. tel:[phone] Referring Provider: [facility]IN [facility] [address], [place], [address]. tel:[phone] OFFICE/OUTPA TIENT VISIT, [facility], [address] [place] [address], [id number] , [place] tel:[phone] [facility] Neck Pain (chief complaint) Causalgia of right upper limbChronic pain syndromeCausal mary of left upper limbOther spondylosis, cervical region 5 Say Amanda. [address] [facility] [address], [place], [place], [id number], [place]. tel:[phone] Referring Provider: [facility]IN [facility] [address], [place], [address]. tel:[phone] [facility], [address] [place] [address], [id number] , [place] tel:[phone] [facility] Other spondylosis, cervical region 5 Jacob Abarca. [address] [place] [address], [id number], [place]. [phone] Referring Provider: [facility] [address], [place], [address]. [phone] [facility], [address] [place] [address], [id number] , [place] tel:[phone] [facility] Other spondylosis, cervical region 4 Nyongesa Julieta. [address] [facility] [address] [facility] [address], [place], [id number], [place]. [phone] Referring Provider: Bill Clayton, [address] [place] [address], [id number]. [phone] OFFICE/OUTPA TIENT VISIT, [facility], [address] [place] [address], [id number] , [place] tel:[phone] [facility] Neck Pain (chief complaint) Causalgia of right upper limbChronic pain syndromeCausal mary of left upper limbOther spondylosis, cervical region 4 Nyongesa Julieta. [address] [facility] [address], [place], [id number], [place]. tel:[phone] Referring Provider: [facility] [address], [place], [address]. [phone] [facility], [address] [place] [address], [id number] , [place] [phone] [facility] Causalgia of right upper limb Gavin-0 4 Venus Guerrero. [place], [address] [facility], [place], [address], [place]. tel:[phone] Referring Provider: [facility]IN [facility] [address], [place], [address]. tel:[phone] OFFICE/OUTPA TIENT VISIT, EST [facility], [address] [place] [address], [id number] , [place] tel:[phone] [facility] Neck Pain (chief complaint) Causalgia of right upper limbChronic pain syndromeRadicu lopathy, cervical regionCausalgi a of left upper limb May-0 3- 4 Say Amanda. [address] [facility] [address], [place], [place], [id number], [place]. tel:[phone] Referring Provider: [facility]IN [facility] [address], [place], [address]. tel:[phone] [facility], [address] [place] [address], [id number] , [place] [phone] [facility] Causalgia of right upper limb Apr-0 - 4 Chetan Khan. [address] [place] [address], [id number], [place]. tel:[phone] Referring Provider: [facility] [address], [place], [address]. tel:[phone] OFFICE/OUTPA TIENT VISIT, [facility], [address] [place] [address], [id number] , [place] [phone] [facility] Neck Pain (chief complaint) Causalgia of right upper limbChronic pain syndromeRadicu lopathy, cervical region Aug-1 4 Say Patel. [address] [facility] [address], [place], [place], [id number], [place]. tel:[phone] Referring Provider: [facility] [address], [place], [address]. tel:[phone] [facility], [address] [place] [address], [id number] , [place] [phone] [facility] Causalgia of right upper limb Mar-0 7- 4 Jacob Abarca. [address] [place] [address], [id number], [place]. tel:[phone] Referring Provider: [facility]IN [facility] [address] [facility] [address], [place], [address]. tel:[phone] [facility], [address] [place] [address], [id number] , [place] [phone] [facility] Causalgia of right upper limb 4 Jacob Abarca. [address] [place] [address], [id number], [place]. tel:[phone] Referring Provider: [facility] [facility] [address], [place], [address]. tel:[phone] [facility], [address] [place] [address], [id number] , [place] [phone] [facility] Causalgia of right upper limb 4 Jacob Abarca. [address] [place] [address], [id number], [place]. tel:[phone] Referring Provider: [facility] [address], [place], [address]. tel:[phone] OFFICE/OUTPA TIENT VISIT, [facility], [address] [place] [address], [id number] , [place] [phone] [facility] Neck Pain (chief complaint) Chronic pain syndromeCausal mary of right upper limbRadiculopa thy, cervical region 4 Say Patel. [address], [place], [place], [id number], [place]. tel:[phone] Referring Provider: ROBIN [facility] [address], [place], [address]. tel:[phone] Family History Family Member Type Diagnosis Age At Onset No Information Payers Payer name Insurance type Covered green party ID Authoriza tion(s) [facility] [id number] Social History Type Description Quantity Date Captured Comments Sex Male Smoking Status No Information Chief Complaint And Reason For Visit No Information Reason For Referral Reason For Referral No Information Plan Of Treatment Date Type Action Status Goal Height. Due on d ue Goal Update Social History. Due o n due Goal PHQ-9. Due on du e Goal Medication Reconciliation. D ue on due Goal Tobacco Use. Due on due Goal Unhealthy drug use screening . Due on due Goal Weight. Due on d ue Goal Lipid panel. Due on due Goal Review Allergy List. Due on due Goal Hepatitis C screening. Due o n due Goal Unhealthy drug use screening . Due on due Goal Review Allergy List. Due on due Goal Medication Reconciliation. D ue on due Goal Hepatitis C screening. Due o n due Goal Update Social History. Due o n due Goal PHQ-9. Due on du e Goal Lipid panel. Due on due Goal Weight. Due on d ue Goal Height. Due on d ue Goal Tobacco Use. Due on due Goal Review Allergy List. Due on due Goal Medication Reconciliation. D ue on due Goal Tobacco Use. Due on due Goal Hepatitis C screening. [...] Goal Tobacco Use. Due on due Goal Unhealthy drug use screening . Due on due Goal Tobacco Use. Due on due Goal Review Allergy List. Due on due Goal Medication Reconciliation. D ue on due Goal Weight. Due on d ue Goal Height. Due on d ue Goal PHQ-9. Due on du e Goal Update Social History. Due o n due Goal Hepatitis C screening. Due o n due Goal Lifestyle education regardin g diet [...] Review Allergy List. Due on due Goal PHQ-9. Due on du e Goal Unhealthy drug use screening . Due on due Goal Update Social History. [...] Goal Weight. Due on d ue Goal Hepatitis C screening. Due o n due Goal PHQ-9. Due on du e Goal Update Social History. Due o n due Goal Review Allergy List. Due on due Goal Unhealthy drug use screening . Due on due Goal Tobacco Use. Due on 024 due Goal Medication Reconciliation. D ue on due Goal Lifestyle education david garay diet completed [...] during today's visit. No other concerns today. Comments: Leta nichols [...] disability paperwork.No other concerns today. Neck Pain The severity of the problem is moderate. Duration: chronic. The problem has worsened. Location of pain is bilateral posterior neck and bilateral upper back. The client describes the pain as Aching, Burning, Sharp and Tingling. Aggravating factors include standing and raising arms. Relieving factors include ice and rest. Comments: This i s my first evaluation [...] most bothersome. Recalls having received RFAs through [facility] previously with the most recent one completed in 2022. Notes the R side provided 10% relief (previous RFA was >60% relief) and L side provided 80-90% relief for over 6 months. Reports the benefit wanes with each repeat. Would like to repeat the RFA through [facility]. No other concerns today. Neck Pain Duration: chroni c. Aggravating factors include reaching overhead and social activities. Additional information:. Rates neck pain as 6/10, trapezius pain as 6/10, and upper back pain as 5/10. Neck Pain Duration: chroni c. The problem has improved. The frequency of pain is constant. Pertinent negatives include bladder incontinence. Comments: Leta [...] ibuprofen. Denies SE. No other concerns today. Comments: This i s my first evaluation of the patient. Outside records from [facility] are available for review.Kvng is a 38 y/o male here for initial WC consult for neck pain (R>L), referred by Dr. Eladio Valera through [facility]. Pain started in 2011 after falling down [...] (last done fall 2022), acupuncture, primary care nurse, massage, and L shoulder injection, without lasting relief. Has had several BL cervical RFAs which were very helpful previously, but has noticed waning relief. Last completed 05/13/23.He had been following with [facility] and was referred to [facility] for a possible interscalene block. Does not have tenderness, pain, or limited ROM upon physical exam. Last cervical MRI in 2022.He has previously tried gabapentin, tizanidine, methocarbamol, metaxalone, naproxen, prednisone, and oxycodone. Muscle relaxers typically cause drowsiness. The patient is currently managed on adderall 30mg AM, adderall 10mg PM, duloxetine 60mg, cyclobenzaprine 5mg, and ibuprofen.Kvng is interested in all treatment options through [facility]. No other concerns today.Treatments Tried: Bilateral cervical RFAs- Previously helpful, several in the past, last one not helpful-done May 13Flexeril- not helpfulTizanidine- not helpful, sedationGabapentin- not helpfulIbuprofen- helpfulCymbalta- not helpfulShoulder joint injection- possibly done for the left shoulderNaproxenRobaxin- not helpful, sedationTPI- Not helpfulCervical LYNNE- not helpfulPT- last done fallAcupuncture- not helpfulBotox injections- not helpfulChiropractic- not helpfulMassage- not helpful Neck Pain Duration: chroni c. The client describes the pain as Aching, Burning and Sharp. Aggravating factors include lifting, lying down, standing, twisting, sitting, changing positions and housework. Relieving factors include ice and massage. Pertinent negatives include bladder incontinence. Functional Status Date Functional Assessmen t No Information Instructions Date Instruction Additional Infor eileenkd Lifestyle education regarding di et Related to Body mass index [BMI] 37.0-37.9, adult Lifestyle education regarding di et Related to Body mass index [BMI] 37.0-37.9, adult Assessments Type Assessment Date No Information Patient Care Teams Name Effective Dates (start - stop) Status Members No Information
[2024-09-09 21:04] LABS: Chloride* 100 mmol/L (96-114); Sodium* 135 mmol/L (135-149)
[2024-09-09 21:05] LABS: Potassium* 3.4 mmol/L (3.6-5.1)
[2024-09-09 21:07] LABS: Blood Urea Nitrogen* 25 mg/dL (5-24); Creatinine* 0.8 mg/dL (0.5-1.5); Est. Creatinine Clearance* 122.74; Estimated Glomerular Filt Rate 115 ml/min
[2024-09-09 21:08] LABS: Anion Gap 10 mEq/L (7-15); Calcium* 9.5 mg/dL (8.4-10.6); Carbon Dioxide* 25 mmol/L (20-32); Glucose* 150 mg/dL (60-115)
[2024-09-09 21:17] LABS: Slide Review Reflex No
== END 2024-09-09 22:20 | disposition home or self-care (01) ==
PROVIDERS: Emergency Provider Student in an Organized Health Care Education/Training Program; PCP Family Medicine
DX: K61.1 Rectal abscess (principal)
CPT/HCPCS: 46050; 10060; 36415; 72193; 80048; 85025; 99284; Q9967

== ENCOUNTER 2025-02-15 14:15 | Outpatient (RCR) | payer BC, SELFPAY | END 2025-03-07 17:23 | disposition home or self-care (01) | PROVIDERS: PCP Family Medicine; Visit Provider Physician Assistant | DX: M79.601 Pain in right arm (principal); M54.12 Radiculopathy, cervical region; Z51.89 Encounter for other specified aftercare | CPT/HCPCS: 97140; 97161 ==